=== PATIENT | female | born 1940 | race Caucasian/White ===

== ENCOUNTER 2018-07-07 05:30 | Inpatient (IN) | payer OTHER ==
[2018-06-24 10:22] LABS: HEMOGLOBIN 13.8 gm/dL (12.0-15.0); MCH 32.4 pg (26.0-34.0); MCHC 34.5 g/dL (28.0-37.0); MCV 93.9 fL (80.0-100.0); RBC 4.26 mil/uL (4.20-5.00); RDW 13.7 % (10.5-14.5); WBC 6.7 thou/uL (4.0-11.0)
[2018-06-24 10:28] LABS: URINE BILIRUBIN NEGATIVE (Negative); URINE BLOOD NEGATIVE (Negative); URINE CLARITY CLEAR; URINE COLOR YELLOW; URINE GLUCOSE-RANDOM* NEGATIVE (Negative); URINE KETONES NEGATIVE (Negative); URINE LEUKOCYTES-REFLEX NEGATIVE (Negative); URINE NITRITE-REFLEX NEGATIVE (Negative); URINE PROTEIN (DIPSTICK) NEGATIVE (Negative); URINE SPECIFIC GRAVITY <= 1.005 (1.005-1.035); URINE UROBILINOGEN 0.2 E.U./dl (0.2-1.0)
[2018-06-24 10:38] LABS: ALBUMIN 3.9 g/dL (3.4-5.0); CALCIUM 9.9 mg/dL (8.5-10.1); POTASSIUM 4.5 mmol/L (3.5-5.1); TOTAL BILIRUBIN 0.3 mg/dL (<0.1-1.0); TOTAL PROTEIN 7.1 g/dL (6.4-8.2)
[2018-06-24 10:40] LABS: PROTIME 10.1 Seconds (9.3-11.4)
[~2018-07-07] VITALS: Ht 157.5 cm; Wt 75.7 kg
--- NOTE | ~2018-07-07 | EKG ---
[address] [address] ELECTROCARDIOGRAM REPORT Name: NATE BEAUCHAMP Room #: PRE IN ..#: [id number] Admission: Attend Phys: Last Martel MD Discharge: Date of : 36 Report #: [id number] THIS REPORT FOR: //name// [facility] Test Date: 2018-06-24 Test Time: 10:14:51 Pat Name: NATE BEAUCHAMP Department: Room: Gender: F [place]: denice jones : 1940 Requested By: Last Martel Order Number: [id number] MD: Jerad Weller Measurements Intervals [place] Rate: 69 P: 62 TX: 174 QRS: 21 QRSD: 76 T: 39 QT: 393 QTc: 421 Interpretive Statements Sinus rhythm Normal tracing No previous ECG available for comparison Electronically Signed On 06-24-2018 16:44:05 CDT by Jerad Weller [email or web address] <ELECTRONICALLY SIGNED> By: Jerad Weller MD, [facility] 06/24/18 1644 1014 1014 Jerad Weller MD, FAC /EPI
--- NOTE | ~2018-07-07 | O ---
[facility] [place] [address] OPERATIVE REPORT Name: NATE BEAUCHAMP Room #: 418-P [facility] IN M.R.#: [id number] Admission: 07/07/18 Attend Phys: Last Martel MD Discharge: 07/08/18 Date of : 36 Report #: [id number] THIS REPORT FOR: //name// CC: Kvng Leandro Martel DATE OF SERVICE: 07/07/2018 PREOPERATIVE DIAGNOSIS: Left hip osteoarthritis. POSTOPERATIVE DIAGNOSIS: Left hip osteoarthritis. PROCEDURE: Left total hip arthroplasty. SURGEON: Last Martel M.D. ENVIRONMENTAL CONTROL ADMINISTRATOR: Teetee Magdaleno PA-C. INDICATIONS FOR ENVIRONMENTAL CONTROL ADMINISTRATOR: Throughout the case, extensive retraction and manipulation of the hip was required including dislocation and reduction of the hip. This was afforded to me by my electrician station assistant. ANESTHESIA: General endotracheal. IMPLANTS: [employer]hew size 12 high offset Synergy press fit stem, a size 52 R3 acetabular cup with one acetabular screw and a size 36+4 cobalt chrome head. ESTIMATED BLOOD LOSS: 50 mL. COMPLICATIONS: None. SPECIMENS: None. CONDITION UPON LEAVING THE OPERATING ROOM: Stable. INDICATION FOR PROCEDURE: The patient is a 77-year-old female with severe left hip osteoarthritis. She had failed conservative measures for this and after discussion with her, she elected for left total hip arthroplasty. DESCRIPTION OF PROCEDURE: Risks, benefits, alternatives, complications were discussed in detail with the patient including, but not limited to risk of anesthesia, risk of damage to nerves, arteries, blood vessels, risk for infection, bleeding, risk for continued hip pain and need for reoperation. Informed consent was obtained from the patient. Left hip was appropriately marked in the preoperative holding area. IV Ancef was given for preoperative [facility] [address] [place] [address] OPERATIVE REPORT Name: NATE BEAUCHAMP Room #: 418-P [facility] IN M.R.#: [id number] Admission: 07/07/18 Attend Phys: Last Martel MD Discharge: 07/08/18 Date of : 36 Report #: [id number] antibiotics. She was brought to the operating room and placed in supine position on the operating room table. General anesthesia was induced without complication. She was then placed in the right lateral decubitus position with the left hip uppermost. Left hip and lower extremity were prepped and draped in normal sterile fashion. Timeout was performed properly identifying the patient, procedure as well as the instrumentation and implants. All in the operating room were in agreement. Standard posterior approach to the hip was made with 10 blade through the skin. Dissection was taken down to fascia with Bovie cautery and fascia was cleaned off with Montgomery elevator. Fresh 10 blade was used to make a fascial incision. This was taken proximally and distally with curved Curtis scissor. Charnley retractor was placed. Trochanteric bursa was taken down with Bovie. The piriformis tendon was identified, tagged and taken down with Bovie cautery. Short external rotators were also taken down with Bovie cautery. Capsulotomy was made and capsule ends were tagged for later repair. The hip was dislocated and there was extensive osteoarthritic change of the femoral head. Femoral neck cut was made 1 cm proximal to lesser trochanter based on preoperative templating and a femoral head was removed. Deep acetabular retractors were placed. Labrum was removed sharply. Pulvinar was removed with Bovie cautery. The acetabulum was then sequentially reamed up to a size 52, at which point there was excellent bleeding cancellous bone. There was a large superior acetabular cyst that was curetted out and bone grafted with the reamings. A size 51 trial cup was placed and found to have a good fit. A final size 52 R3 acetabular cup was then placed and seated. One acetabular screw was placed for backup fixation and polyethylene liner for a 36 head was placed. Attention was then turned to the femur. This was reamed and broached up to a size 12, at which point the size 12 broach was stable. This trialed with a high offset neck and a 36+0 head. Hip was reduced, taken through range of motion, found to be stable, found to be somewhat short on the left compared to the right and was felt this could be made up for in the final implant. The broach was removed. Final size 12 high offset Synergy press fit stem was placed and seated. This was then trialed with a 36+4 head. Hip was reduced, taken through range of motion, found to be stable, found to have equal leg lengths. Hip was dislocated one last time and a final size 36+4 cobalt chrome head was placed. Hip was reduced, taken through range of motion, found to be stable, found to have equal leg lengths. The hip was thoroughly irrigated with normal saline. Periarticular injection consisting of morphine, ropivacaine, epinephrine, Toradol was placed on the hip joint. 1 gram of vancomycin was placed deep in the joint. The capsule and piriformis were repaired with 0 FiberWire. Fascia was closed with 0 Vicryl, skin was closed with 2-0 Vicryl, 3-0 Monocryl and a OSMAN dressing was applied. The patient tolerated this procedure well and went to the recovery room under the care of anesthesia postoperatively. <ELECTRONICALLY SIGNED> By: Last Martel MD 07/15/18 1434 0919 0935 Last Martel MD /jeanne
[~2018-07-07 05:30] MED LIST: ASA5UEC PO; CALCIUM 500 +1 EAC5 PO; CELEXA20 MG PO; CINNAMON500 MG PO; CO Q-10100 M1 PO; GLUCOSAMINE CH1 EAC2 PO; MULTIVITAMINS1 EAC7 PO; REFRESH TEARS15 ML OPHTHALMIC; SUPER B COMPLE150 MG PO; TRIAMTERENE-HC1 EAC2 PO; VITAMIN B125000 MCG PO; VITAMIN D35000 UNIT PO; ZOCOR20 MG PO
[2018-07-07 07:59] VITALS: BP 161/62
[2018-07-07 16:33] VITALS: BP 129/41
[2018-07-07 19:18] VITALS: BP 127/44
[2018-07-08 04:39] VITALS: BP 125/51
[2018-07-08 06:22] LABS: BASOPHILS 0.3 % (0.0-2.0); HEMOGLOBIN 9.7 gm/dL (12.0-15.0); LYMPHOCYTES 27.1 % (24.0-44.0); MCH 32.4 pg (26.0-34.0); MCHC 34.5 g/dL (28.0-37.0); MONOCYTES 8.2 % (1.0-8.0); PLATELET COUNT 215 thou/uL (150-400); POLYS 63.4 % (36.0-66.0); RBC 2.98 mil/uL (4.20-5.00); RDW 13.4 % (10.5-14.5); WBC 7.9 thou/uL (4.0-11.0)
[2018-07-08 06:32] LABS: CREATININE 0.8 mg/dL (0.6-1.0); MAGNESIUM 1.8 mg/dL (1.8-2.4)
[2018-07-08 08:28] VITALS: BP 111/55
[2018-07-08] MEDS ORDERED: NEURONTIN 300300 M1 PO (13:06)
[2018-07-08] MEDS ORDERED: TRI-BUFFERED A325 M1 PO (13:06)
[2018-07-08 13:47] VITALS: BP 120/39
[2018-07-08 13:51] VITALS: BP 120/39
[2018-07-08 14:02] VITALS: BP 120/39
== END 2018-07-08 15:18 | disposition home health service (06) | DRG 470 ==
LOC: TBA 05:30 → 4E 05:30 → PRE 08:29 → 4E 13:40 → PRE 14:17 → 4E 07-08 15:18
PROVIDERS: Nurse Practitioner; Orthopaedic Surgery
PROC: 0SRB02A Replacement of Left Hip Joint with Metal on Polyethylene Synthetic Substitute, Uncemented, Open Approach (ICD-10-PCS; principal; 2018-07-07)
DX: M16.12 Unilateral primary osteoarthritis, left hip (principal); I10 Essential (primary) hypertension; F32.9 Major depressive disorder, single episode, unspecified; Z60.2 Problems related to living alone; M16.11 Unilateral primary osteoarthritis, right hip; E78.5 Hyperlipidemia, unspecified; Z79.899 Other long term (current) drug therapy; Z79.82 Long term (current) use of aspirin; Z98.49 Cataract extraction status, unspecified eye; Z87.891 Personal history of nicotine dependence; Z88.6 Allergy status to analgesic agent; Z91.041 Radiographic dye allergy status
CPT/HCPCS: 10783; 50010; 50101; 50382; 50414; 51771; 53000; 53078; 53367; 54118; 56524; 56527; 56528; 56530; 57095; 57103; 62110; 62900; 70005

== ENCOUNTER → 2020-08-30 | Outpatient (CLI) | payer OTHER ==
[~2020-08-30] MED LIST changes: +ARIMIDEX PO; +HYDROCODON-ACE1 EAC7 PO; +NEURONTIN 300300 M1 PO; +PAIN RELIEF325 MG PO; +SUPER B WITH V1 EAC1 PO; +TRI-BUFFERED A325 M1 PO
[2020-08-30 11:34] LABS: URINE BILIRUBIN NEGATIVE (Negative); URINE BLOOD NEGATIVE (Negative); URINE CLARITY CLEAR; URINE COLOR YELLOW; URINE GLUCOSE-RANDOM* NEGATIVE (Negative); URINE KETONES NEGATIVE (Negative); URINE LEUKOCYTES-REFLEX NEGATIVE (Negative); URINE NITRITE-REFLEX NEGATIVE (Negative); URINE PROTEIN (DIPSTICK) NEGATIVE (Negative); URINE UROBILINOGEN 0.2 E.U./dl (0.2-1.0)
[2020-08-30 11:36] LABS: HEMATOCRIT 39.4 % (37.0-47.0); HEMOGLOBIN 12.9 gm/dL (12.0-15.0); MCH 31.4 pg (26.0-34.0); MCHC 32.7 g/dL (28.0-37.0); MCV 96.2 fL (80.0-100.0); RBC 4.1 mil/uL (4.20-5.00); RDW 13.2 % (10.5-14.5); WBC 7.3 thou/uL (4.0-11.0)
[2020-08-30 11:50] LABS: ALBUMIN 4.3 g/dL (3.4-5.0); CREATININE 0.8 mg/dL (0.6-1.0); POTASSIUM 4.6 mmol/L (3.5-5.1); PROTIME 10.3 Seconds (9.3-11.4)
== END ==
LOC: LAB 09:00
PROVIDERS: ATTEND Orthopaedic Surgery
DX: Z01.818 Encounter for other preprocedural examination (principal); Z96.641 Presence of right artificial hip joint

== ENCOUNTER → 2020-09-13 | Outpatient (CLI) | payer OTHER | LOC: LAB 09-12 12:39 | PROVIDERS: ATTEND Orthopaedic Surgery | DX: Z01.812 Encounter for preprocedural laboratory examination (principal); Z20.828 Contact with and (suspected) exposure to other viral communicable diseases ==

== ENCOUNTER 2020-09-18 10:27 | Day surgery (SDC) | payer OTHER ==
[2020-08-30 11:34] LABS: URINE BILIRUBIN NEGATIVE (Negative); URINE BLOOD NEGATIVE (Negative); URINE CLARITY CLEAR; URINE COLOR YELLOW; URINE GLUCOSE-RANDOM* NEGATIVE (Negative); URINE KETONES NEGATIVE (Negative); URINE LEUKOCYTES-REFLEX NEGATIVE (Negative); URINE NITRITE-REFLEX NEGATIVE (Negative); URINE PROTEIN (DIPSTICK) NEGATIVE (Negative); URINE UROBILINOGEN 0.2 E.U./dl (0.2-1.0)
[2020-08-30 11:36] LABS: HEMATOCRIT 39.4 % (37.0-47.0); HEMOGLOBIN 12.9 gm/dL (12.0-15.0); MCH 31.4 pg (26.0-34.0); MCHC 32.7 g/dL (28.0-37.0); MCV 96.2 fL (80.0-100.0); RBC 4.1 mil/uL (4.20-5.00); RDW 13.2 % (10.5-14.5); WBC 7.3 thou/uL (4.0-11.0)
[2020-08-30 11:50] LABS: ALBUMIN 4.3 g/dL (3.4-5.0); CREATININE 0.8 mg/dL (0.6-1.0); POTASSIUM 4.6 mmol/L (3.5-5.1); PROTIME 10.3 Seconds (9.3-11.4)
--- NOTE | 2020-08-30 14:38 | EKG ---
[facility] [place] [address] ELECTROCARDIOGRAM REPORT Name: NATE BEAUCHAMP Room #: PRE [facility] [place]..#: [id number] Admission: Attend Phys: Last Martel MD Discharge: Date of : 36 Report #: [id number] THIS REPORT FOR: cc: FAM - Family physician unknown FAM - Family physician unknown Mahad Chaney MD [facility] ~ THIS REPORT FOR: //name// [facility] Test Date: 2020-08-30 Test Time: 11:28:25 Pat Name: NATE BEAUCHAMP Department: Room: Gender: F Privacy Officer: Alka PUGH : 1940 Requested By: Last Martel Order Number: [id number] MD: Mahad Chaney Measurements Intervals [place] Rate: 69 P: 47 TN: 137 QRS: 28 QRSD: 79 T: 26 QT: 417 QTc: 447 Interpretive Statements Sinus rhythm Multiple premature complexes, vent & supraven Compared to ECG 06/24/2018 10:14:51 No significant changes Electronically Signed On 08-30-2020 14:38:18 SPEECH LANG PATH THERAPIST by Mahad hCaney [email or web address] <ELECTRONICALLY SIGNED> By: Mahad Chaney MD, FACC 08/30/20 1438 1128 1128 Mahad Chaney MD, [facility] /EPI
[2020-09-18] VITALS (9 sets, daily range): BP systolic 137–163; BP diastolic 52–71
[~2020-09-18] VITALS: Ht 154.9 cm; Wt 79.4 kg
--- NOTE | ~2020-09-18 | O ---
[facility] [place] [address] OPERATIVE REPORT Name: NATE BEAUCHAMP Room #: 448-P [facility] M..#: [id number] Admission: 09/18/20 Attend Phys: Last Martel MD Discharge: Date of : 36 Report #: [id number] THIS REPORT FOR: cc: Marcos Davis MD, Douglas James MD Abraham,Last Corrales MD ~ DATE OF SERVICE: 09/18/2020 PREOPERATIVE DIAGNOSIS: Right hip osteoarthritis. POSTOPERATIVE DIAGNOSIS: Right hip osteoarthritis. PROCEDURE: Right total hip arthroplasty. SURGEON: Last Martel MD. HAND TIER: Teetee Magdaleno PA-C. INDICATIONS FOR HAND TIER: Throughout the case, extensive retraction and manipulation of the hip including dislocation and reduction was required. This was afforded to me by my camp assistant. ANESTHESIA: LMA. IMPLANTS: [employer]hew size 13 high-offset Synergy press-fit stem, a size 52 R3 acetabular cup with 1 acetabular screw, a size 36+0 cobalt chrome head and a single Accord cable for prophylactic femur fixation. ESTIMATED BLOOD LOSS: 100 mL. COMPLICATIONS: None. SPECIMENS: None. CONDITION UPON LEAVING THE OPERATING ROOM: Stable. INDICATIONS FOR PROCEDURE: The patient is an 79-year-old female with severe right hip osteoarthritis. She had failed conservative measures for this and after discussion with her, she elected for right total hip arthroplasty. DESCRIPTION OF PROCEDURE: Risks, benefits, alternatives, complications were discussed in detail with the patient including but not limited to risk of anesthesia, risk of damage to nerves, arteries, blood vessels, risk for infection, bleeding, risk for continued hip pain, leg length discrepancy, instability and need for reoperation. Informed consent was obtained from the patient. Right hip was appropriately marked in the preoperative holding area. [address] [address] OPERATIVE REPORT Name: NATE BEAUCHAMP Room #: 448-P [facility] M..#: [id number] Admission: 09/18/20 Attend Phys: Last Martel MD Discharge: Date of : 38 Report #: [id number] IV Ancef was given for preoperative antibiotics. She was brought to the operating room and placed in supine position on operating room table. LMA anesthesia was induced without complication. She was then placed in the left lateral decubitus position with the right hip uppermost. Right hip and lower extremity were prepped and draped in normal sterile fashion. Timeout was performed properly identifying the patient and procedure as well as the instrumentation and implants. All in the operating room were in agreement. Standard posterior approach to the hip was made with 10 blade through the skin. Dissection was taken down to fascia with Bovie cautery and Montgomery elevator was used to clean off the fascia. Fresh 10 blade was used to make a fascial incision. This was taken proximally and distally with curved Curtis scissors. Charnley retractor was placed. Trochanteric bursa was taken down with Bovie cautery. Piriformis tendon was identified, tagged and taken down with Bovie cautery. Short external rotators were also taken down with Bovie cautery. Capsulotomy was made and capsule ends were tagged for later repair. Hip was dislocated. There was extensive osteoarthritic change of the femoral head. Femoral neck cut was made 1 cm proximal to lesser trochanter based on preoperative templating. Femoral head was removed. Deep acetabular retractors were placed. Labrum was removed sharply. Pulvinar was removed with Bovie cautery. Acetabulum was then sequentially reamed up to a size 52, at which point, there was excellent bleeding cancellous bone. A size 51 trial cup was placed, found to have a good fit. A final size 52 R3 acetabular cup was placed and seated. One acetabular screw was placed for backup fixation and a polyethylene liner for a 36 head was placed. Attention was turned to the femur, 1 prophylactic Accord cable was placed around the proximal femur for prophylactic fixation and the femur was reamed and broached up to a size 13, at which point, the size 13 broach was stable, this was trialed with a high offset neck and a 36+0 head. Hip was reduced, taken through range of motion, found to be stable, found to have equal leg lengths. Hip was dislocated. Broach was removed and final size 13 high offset Synergy press-fit stem was placed and seated. This was trialed again with a 36+0 head. Hip was reduced, taken through range of motion, found to be stable, found to have equal leg lengths. Hip was dislocated one last time and a final size 36+0 cobalt chrome head was placed. Hip was reduced, taken through range of motion, found to be stable, found to have equal leg lengths. Wound was thoroughly irrigated with normal saline. Periarticular injection consisting of morphine, ropivacaine, epinephrine, Toradol was placed around the hip joint capsule. A gram of vancomycin was placed deep in the joint. The capsule and piriformis were repaired with 0 FiberWire. Fascia was closed with 0 Vicryl, skin was closed with 2-0 Vicryl, 3-0 Monocryl. Dermabond and a OSMAN dressing were applied. The patient tolerated this procedure well and went to recovery room under the care of anesthesia postoperatively. By: 1250 1314 Last Martel MD /jeanne
[2020-09-19 02:10] VITALS: BP 131/49
[2020-09-19 05:35] LABS: HEMATOCRIT 29.7 % (37.0-47.0); HEMOGLOBIN 9.7 gm/dL (12.0-15.0); MCH 31.6 pg (26.0-34.0); MCHC 32.7 g/dL (28.0-37.0); MCV 96.6 fL (80.0-100.0); RBC 3.07 mil/uL (4.20-5.00); RDW 13.3 % (10.5-14.5); WBC 11.3 thou/uL (4.0-11.0)
[2020-09-19 08:21] VITALS: BP 146/52
[2020-09-19 11:58] VITALS: BP 146/52
[2020-09-19 13:01] VITALS: BP 146/52
== END 2020-09-19 13:52 | disposition home or self-care (01) ==
LOC: OR → TBA 10:36 → OR 10:38 → 4S 15:50 → OR 09-19 13:52
PROVIDERS: ATTEND Orthopaedic Surgery
DX: M16.11 Unilateral primary osteoarthritis, right hip (principal); I10 Essential (primary) hypertension; E78.5 Hyperlipidemia, unspecified; F32.9 Major depressive disorder, single episode, unspecified; M19.90 Unspecified osteoarthritis, unspecified site; Z98.51 Tubal ligation status; Z98.890 Other specified postprocedural states; Z79.899 Other long term (current) drug therapy; Z87.891 Personal history of nicotine dependence; Z87.19 Personal history of other diseases of the digestive system; Z98.41 Cataract extraction status, right eye; Z98.42 Cataract extraction status, left eye; Z88.8 Allergy status to other drugs, medicaments and biological substances; Z88.2 Allergy status to sulfonamides; Z91.041 Radiographic dye allergy status
CPT/HCPCS: 10102; 50010; 50101; 50382; 50414; 53000; 53078; 53367; 56524; 56527; 56528; 56530; 57095; 57103; 62110; 62900; 70005